=== PATIENT | male | born 1990 | race Caucasian/White ===

== ENCOUNTER 2020-09-07 07:59 | Emergency (ER) | payer OTHER ==
[2020-09-07] MEDS ORDERED: CYCLOBENZAPRINE5 MG PO (12:16)
[2020-09-07] MEDS ORDERED: ANAPROX DS550 MG PO (12:16)
== END 2020-09-07 12:56 | disposition home or self-care (01) ==
LOC: ER1 07:59
DX: S39.012A Strain of muscle, fascia and tendon of lower back, initial encounter (principal); M51.36 Other intervertebral disc degeneration, lumbar region; Z79.1 Long term (current) use of non-steroidal anti-inflammatories (NSAID); Z79.899 Other long term (current) drug therapy; X50.9XXA Other and unspecified overexertion or strenuous movements or postures, initial encounter
CPT/HCPCS: 72100; 96372; 99283; J1885